=== PATIENT | male | born 1940 | race Caucasian/White ===

== ENCOUNTER → 2025-06-15 | Outpatient (CLI) | payer MEDICARE ==
[~2025-06-15] MED LIST: FERR325T3 PO; GNP250TA9 PO; IBUP-1022 PO
== END ==
LOC: M PLARAD 10:34
PROVIDERS: ATTEND Specialist
DX: C88.00 Waldenstrom macroglobulinemia not having achieved remission (principal)
CPT/HCPCS: 78815; A9552